=== PATIENT | male | born 1995 | race Caucasian/White ===

== ENCOUNTER → 2021-02-25 07:27 | Outpatient (BNVA) | payer OTHER, SELFPAY | PROVIDERS: Family Provider Pediatrics Adolescent Medicine; PCP Nurse Practitioner; Visit Provider Family Medicine | DX: R05 Cough (principal); Z11.52 Encounter for screening for COVID-19 | CPT/HCPCS: 87635 ==

== ENCOUNTER 2021-12-22 19:53 | Emergency (ER) | payer SELFPAY ==
--- NOTE | 2021-12-22 20:01 | XRR_ITS ---
PROCEDURE INFORMATION: Exam: XR Right Shoulder Exam date and time: 12/22/2021 8:13 PM Age: 26 years old Clinical indication: Pain; Shoulder; Right TECHNIQUE: Imaging protocol: XR Right shoulder. Views: 2 or more views. COMPARISON: No relevant prior studies available. FINDINGS: Bones/joints: Normal. Lungs: Right hilar atelectasis versus minimal infiltrate suspected. Soft tissues: Normal. XR/XR shoulder RT min 2V* [id number] IMPRESSION: 1. No acute findings. 2. Right hilar atelectasis versus minimal infiltrate suspected.
[2021-12-22 20:03] VITALS: BP 145/89; PULSE 85; RESP 18; TEMP 36.9; O2SAT 97; BMI 34.4
--- NOTE | 2021-12-22 20:22 | W.ED.EXTPRO ---
HPI - Extremity Problem General: Chief complaint: Extremity Injury, Upper Stated complaint: R shoulder pain Time Seen by Provider: 12/22/21 20:06 History of Present Illness: Patient is a 26-year-old male who comes to the ED with right shoulder pain. Symptoms started a week ago. Patient says he slept on his right shoulder weird and woke up and felt pain. Denies any fall or injury to cause pain. He took ibuprofen approximately 3 hours ago. He rates his current pain a 6 out of 10. Associated symptoms: Deny chest pain, fever(s) or rash Review of Systems Const: Denies: fever(s), chills or fatigue Eyes: Denies: change in vision or eye discomfort ENMT: Denies: throat pain, odynophagia, nasal discharge or nasal congestion Card: Denies: chest pain, palpitations, edema, swelling of feet/ankles, dyspnea on exertion or orthopnea Resp: Denies: dyspnea, productive cough or non-productive cough GI: Denies: abdominal pain, nausea, vomiting, diarrhea, constipation or hematochezia : Denies: flank pain, difficulty urinating, dysuria or hematuria Musc: Reports: extremity pain (right shoulder pain); Denies: neck pain, back pain or extremity swelling Skin/Breast: Denies: rash or new lesions Neuro: Denies: headache(s), numbness in extremities or weakness in extremities PFS ED PFSH: Medical History No pertinent past medical history Surgical History No pertinent past surgical history Social History Smoking and tobacco status: never smoked Physical Exam Const: COMMON NORMALS: no acute distress, patient oriented x3 and alert GENERAL APPEARANCE: cooperative and comfortable HENMT: COMMON NORMALS: normocephalic HEAD & SCALP: normocephalic MOUTH: Normal oral and palatal mucosa present THROAT: posterior oropharynx normal and uvula midline Neck/C-Spine: COMMON NORMALS: supple GENERAL: Yes normal visual inspection Resp: COMMON NORMALS: normal respiratory effort, No retractions, No use of accessory muscles and clear to auscultation bilaterally AUSCULTATION: clear to auscultation bilaterally Cardio: COMMON NORMALS: regular rate, regular rhythm, S1 normal heart sound present, S2 normal heart sound present, No gallops present (Cardio), No clicks present (Cardio), No murmurs present (Cardio) and Peripheral pulses 2+ throughout RATE: regular rate RHYTHM: regular rhythm HEART SOUNDS: S1 normal heart sound present and S2 normal heart sound present PERIPHERAL PULSES: Peripheral pulses 2+ throughout GI: COMMON NORMALS: Normal to inspection, nondistended, normoactive bowel sounds present, Soft to palpation, non-tender and no masses PALPATION: Yes Soft to palpation : COMMON NORMALS: Yes no CVA tenderness BLADDER/KIDNEY EXAM: Yes no CVA tenderness Back/Pelvis: COMMON NORMALS: no CVA tenderness Extremity: NARRATIVE EXTREMITY EXAM: Right shoulder?no deformities or swelling seen. Full range of motion. No tenderness to palpation. Neurovascular tact. Neuro: COMMON NORMALS: patient oriented x3 and moves all extremities SENSORIUM/ORIENTATION: Yes alert Skin: GENERAL SKIN EXAM: dry skin Course Vital Signs: Vital signs: Vital Signs Temperature 98.4 F 12/22/21 20:03 Pulse Rate 85 12/22/21 20:03 Respiratory Rate 18 12/22/21 20:03 Blood Pressure 145/89 12/22/21 20:03 Pulse Oximetry 97 12/22/21 20:03 MDM - Extremity (Nontraumatic) Medical Decision Making Patient is a 26-year-old male comes to the ED with right shoulder pain. He denies any injury or trauma and says a week ago he woke up with the pain in his shoulder because he slept on it weird. Vitals are stable. Exam of patient is benign he has no tenderness to his right shoulder and has full range of motion. Neurovascular tact. X-ray right shoulder showed no acute fractures or findings. Patient was put in a shoulder sling for the next 2 to 3 days and discharged home told to follow-up with his PCP in the next week for reevaluation. I told him that he needs to take arm out of sling multiple times a day and do some range of motion exercises to prevent frozen shoulder. He was sent home with a prescription for Celebrex for pain. Patient understood and agreed with plan. Discharge Plan Discharge Patient Disposition: Home Clinical Impression: Acute pain of right shoulder Condition: Stable Prescriptions: New Celebrex 100 mg capsule 100 mg PO BID PRN (Reason: pain) Qty: 20 0RF Discharge Orders: Discharge ED (Routine); Ordered 12/22/21 Ordered By: Geoffrey Mercado Discharge Diet: Regular Discharge Activity: Increase activity as tolerated Patient Instructions: Shoulder Sprain (ED), Shoulder Pain (ED) Activity Restrictions/Additional Instructions: Follow-up with medical provider as directed in the next 7 to 10 days for reevaluation. Take medications as prescribed. Wear shoulder sling for the next 2 to 3 days to allow your shoulder to heal. Remember to take arm out of sling multiple times a day and do some range of motion exercises to prevent frozen shoulder. return to the ER or your medical provider if condition worsens. Please read and understand discharge instructions. Thank you for choosing [facility] for your healthcare needs today. Please realize this is an emergency room and that we are providing you with a medical screening exam and this may not be complete and all inclusive of all the testing and or work up that you may need to determine your ailment or severity of your illness. It is very important that you follow up as instructed or that you return to the Emergency Department should you have concerns or if your condition changes or worsens in any way. Coding Level of Care Code ED Service Desk Lead for Daniel Adames Exam Comprehensive
[2021-12-22] MEDS: acetaminophen 500 mg Tablet 1000 MG PO (20:37)
== END 2021-12-22 20:42 | disposition home or self-care (01) ==
PROVIDERS: Emergency Provider Physician Assistant
DX: M25.511 Pain in right shoulder (principal)
CPT/HCPCS: 73030; 99283